=== PATIENT | male | born 2000 | race Hispanic/Latino ===

== ENCOUNTER 2019-07-15 08:21 | Outpatient (CLI) | payer BC, OTHER ==
--- NOTE | 2019-07-15 11:59 | MRI ---
MRI RIGHT ANKLE PERFORMED WITHOUT CONTRAST ENHANCEMENT: HISTORY: The patient sprained his ankle last fall. Persistent medial ankle pain, more along the plantar aspect of the foot. FINDINGS: The Achilles tendon is normal in appearance. No edema change in Kager's fat. The anterior extensor tendon group is unremarkable. The peroneus longus and brevis tendons are intact . Posterior tibialis, flexor digitorum longus and flexor hallucis longus tendons are intact. There is s ome trace tenosynovitis change of the posterior tibialis and flexor digitorum longus tendons. The sinus tarsi region is normal in appearance. The plantar fascia is unremarkable. There are edema changes within the region of the spring ligament. Fibers are intact although there ar e areas of some laxity of some of the fibers, which would suggest partial tear. There is no evidence of any complete disruption of any of the spring ligament complex. There is no evidence of any marrow edema change related to the talus that would suggest any type of instability. There is also some mild heterogeneity to the anterior superficial fibers of the deltoid ligament. The deep fibers are all in tact. No signs of any osteochondral lesion of the talar dome. Syndesmotic ligaments are intact. The anterio r talofibular ligament and posterior talofibular ligament as well as calcaneal fibular ligaments all appear intact. Lisfranc ligament is intact. IMPRESSION: Spring ligament complex injury with edema changes and some laxity to some of the fibers, suggesting a lower grade partial tear of some of the components of the spring ligament complex. There is also karrie e mild heterogeneity to some of the superficial fibers of the deltoid ligament in this region consist ent with an older injury and possibly some scar or granulation. POS: [facility]
== END 2019-07-15 08:22 | disposition home or self-care (01) ==
LOC: BICMRI 08:21
PROVIDERS: ATTEND Orthopaedic Surgery
DX: M25.571 Pain in right ankle and joints of right foot (principal); S99.911A Unspecified injury of right ankle, initial encounter